=== PATIENT | female | born 1945 | race Caucasian/White ===

== ENCOUNTER 2018-12-08 11:49 | Emergency (ER) | payer MEDICARE, OTHER ==
[2018-12-08 12:05] VITALS: O2SAT 98
--- NOTE | 2018-12-08 12:05 | ED.PDOC ---
History of Present Illness - General Chief Complaint: Abdominal Pain Stated Complaint: abdominal pain Time Seen by Provider: 12/08/18 12:04 Information Source: patient Exam Limitations: no limitations - History of Present Illness Initial Comments: Therese Alvarez 73 y/o female brought by EMS with onset of non radiating intermittent upper abdominal pain after eating cereal this am felt nauseated,no diarrhea.no constipation,had bowel movement 2 days ago.Also denies hematuria ,dysuria. Abdominal Pain Onset Location: other Pain Radiation: no radiation Timing/Duration: 4-6 hours Improving Factors: nothing Worsening Factors: nothing Associated Symptoms: other - see hpi Review of Systems - Review of Systems Constitutional: States: no symptoms reported EENTM: States: no symptoms reported Respiratory: States: no symptoms reported Cardiology: States: no symptoms reported Gastrointestinal/Abdominal: States: see HPI Musculoskeletal: States: no symptoms reported All other Systems: Reviewed and Negative, No Change from Baseline Past Medical History (General) - Patient Medical History Hx Seizures: No Hx Stroke: No Hx Dementia: No Hx Asthma: No Hx of COPD: No Hx Cardiac Disorders: No Hx Congestive Heart Failure: No Hx Pacemaker: No Hx Hypertension: Yes Hx Thyroid Disease: Yes - thyroidectomy Hx Diabetes: No Hx Gastroesophageal Reflux: No Hx Renal Disease: No Hx Cancer: No Hx of HIV: No Hx Hepatitis C: No Hx MRSA: No Surgical History: other - c-sections;wrist right,thyroidectomy - Vaccination History Hx Tetanus, Diphtheria Vaccination: No Hx Influenza Vaccination: No Hx Pneumococcal Vaccination: No - Social History Hx Tobacco Use: No Hx Chewing Tobacco Use: No Hx Alcohol Use: No Hx Substance Use: No Hx Substance Use Treatment: No Hx Depression: No Hx Physical Abuse: No Hx Emotional Abuse: No Hx Suspected Abuse: No - Activities of Daily Living Patient Lives Alone: Yes - has caregiver in am;uses wheelchair - Female History Patient : No Family Medical History - Family History Mother Family History: Unknown Hx Family Stroke: Yes - DAD Hx Family;Other: ALZHEIMERS DISEASE-mom Physical Exam - Physical Exam General Appearance: Comfortable, Frail, No apparent distress Eyes, Ears, Nose, Throat Exam: normal ENT inspection Neck: non-tender, supple, normal inspection Respiratory: chest non-tender, lungs clear, normal breath sounds Cardiovascular/Chest: normal peripheral pulses, regular rate, rhythm, no murmur Peripheral Pulses: No deficit Gastrointestinal/Abdominal: normal bowel sounds, soft, tenderness - upper abdomen;no peritoneal signs Back Exam: no CVA tenderness, no vertebral tenderness Neurologic: alert, oriented x 3 Skin Exam: normal color, warm/dry Progress - Progress Progress: 12/08/18 13:06 Vital Signs - 8 hr 12/08/18 11:49 Temperature 99.0 F Pulse Rate [ 90 Left Radial] Respiratory 18 Rate Blood Pressure 140/88 [Left Arm] O2 Sat by Pulse 98 Oximetry 12/08/18 15:54 Family wants refill of Tylenol 3 and alprazolam -patient has appointment with primary Md next week - Results/Orders Results/Orders: 12/08/18 14:45 Urine Culture Stat Laboratory Results - last 24 hr 12/08/18 12/08/18 12:55 14:45 WBC 14.4 H RBC 4.56 Hgb 12.9 Hct 39.3 MCV 86.1 MCH 28.3 MCHC 32.9 L RDW 15.0 H Plt Count 362 MPV 8.1 Absolute Neuts (auto) 11.70 H Absolute Lymphs (auto) 1.70 Absolute Monos (auto) 0.80 Absolute Eos (auto) 0.10 Absolute Basos (auto) 0.10 Neutrophils % 81.3 H Lymphocytes % 11.7 L Monocytes % 5.4 Eosinophils % 0.8 L Basophils % 0.8 PT 10.3 INR 1.03 PTT (SP) 24.1 Sodium 137 Potassium 3.6 Chloride 108 Carbon Dioxide 18 L Anion Gap 14.6 BUN 16 Creatinine 0.71 BUN/Creatinine Ratio 22.5 H Random Glucose 115 H Serum Osmolality 275.9 Calcium 8.5 Magnesium 1.9 Total Bilirubin 0.7 Direct Bilirubin < 0.1 Indirect Bilirubin 0.6 AST 14 ALT 13 Alkaline Phosphatase 65 Creatine Kinase 20 L CK-MB (CK-2) 0.6 CK-MB (CK-2) % Not Reportable Troponin I < 0.02 Serum Total Protein 6.4 Albumin 3.7 Lipase 42 Urine Color Yellow Urine Appearance Sl cloudy Urine pH 5.5 Ur Specific [place] 1.015 Urine Protein Negative Urine Glucose (UA) Negative Urine Ketones Negative Urine Blood Negative Urine Nitrite Negative Urine Bilirubin Negative Urine Urobilinogen 0.2 Ur Leukocyte Esterase Small H Urine RBC 0 Urine WBC 5-10 H Ur Epithelial Cells 1-3 Urine Bacteria Rare - EKG/XRAY/CT XRAY: chest - no acute abnormalities CT Ordered: Yes - no acute abnormalties Departure - Departure Clinical Impression: Abdominal pain Qualifiers: Abdominal location: unspecified location Qualified Code(s): R10.9 - Unspecified abdominal pain Urinary tract infection Qualifiers: Urinary tract infection type: site unspecified Hematuria presence: without hematuria Qualified Code(s): N39.0 - Urinary tract infection, site not specified Constipation Qualifiers: Constipation type: slow transit constipation Qualified Code(s): K59.01 - Slow transit constipation Time of Disposition: 15:53 Disposition: Discharge to Home or Self Care Condition: Fair Departure Forms: ED Discharge - Pt. Copy, Patient Portal Self Enrollment Instructions: DI for Abdominal Pain-Adult, Urinary Tract Infections in Adults, Constipation in Adults, Constipation, Adult (DC), Urinary Tract Infection, Adult (DC) Referrals: DENZEL GAN [Primary Care Provider] - 1-2 Weeks Prescriptions: Acetamin W/Cod #3 Tab [Tylenol w/CODEINE #3] 1 ea PO TID PRN #20 tab PRN Reason: Pain Alprazolam [Xanax] 1 mg PO BEDTIME #10 tab Nitrofurantoin Monohydrate Mac [Macrobid] 100 mg PO BID 7 Days #10 capsule Home Medications: Ambulatory Orders Atorvastatin Calcium [Lipitor] 20 mg PO BEDTIME 07/13/14 Calcitonin-[place] Nasal [place] [Miacalcin Nasal [place]] 200 unit NA DAILY 07/13/14 Hydrochlorothiazide [Microzide] 12.5 mg PO DAILY 07/13/14 Levothyroxine Sodium [Tirosint] 100 mcg PO DAILY 07/13/14 Lisinopril 10 mg PO DAILY 07/13/14 Metoprolol Succinate [Metoprolol Succinate ER] 100 mg PO BEDTIME 07/13/14 Sertraline HCl 75 mg PO DAILY 07/13/14 Acetaminophen W/ Codeine [Tylenol W/ CODEINE #3] 1 ea PO Q4H PRN #12 04/09/16 Ibuprofen [Motrin Tab] 600 mg PO Q8H PRN #15 tab 04/09/16 Acetamin W/Cod #3 Tab [Tylenol w/CODEINE #3] 1 ea PO TID PRN #20 tab 12/08/18 Alprazolam [Xanax] 1 mg PO BEDTIME #10 tab 12/08/18 Nitrofurantoin Monohydrate Mac [Macrobid] 100 mg PO BID 7 Days #10 capsule 12/08/18 Additional Instructions: Return to ER as needed;Keep appointment with primary Md next week
[2018-12-08] MEDS ORDERED: MORPHINE SULFATE INJ 10 MG/ML VIAL IV ONE (12:06)
[2018-12-08] MEDS ORDERED: SODIUM CHLORIDE 0.9% 500ML 500 ML IVS ONE (12:06)
[2018-12-08] MEDS ORDERED: PROCHLORPERAZINE INJ 10 MG/2 ML VIAL IV ONE (12:06)
--- NOTE | 2018-12-08 12:47 | RAD ---
PROCEDURE: XR Chest, 1 View CLINICAL INDICATION: The patient is 73 years old and is Female; pain TECHNIQUE: Frontal view of the chest. COMPARISON: Prior study from 04/19/2010 FINDINGS: LIMITATIONS: The patient's chin overlies the lung apices causing partial obscuration. The patient is rotated, which can compromise assessment. LUNGS: The lungs are clear and free of focal consolidation. Pulmonary vascularity is normal. PLEURAL SPACE: There is NO pneumothorax. There are no pleural effusions noted. HEART: The heart size is normal. MEDIASTINUM: The mediastinal contour is unremarkable. BONES/JOINTS: There has been prior ORIF of the LEFT clavicle. No acute abnormality. VASCULATURE: The aorta is uncoiled. IMPRESSION: The lungs are clear and free of focal consolidation. Electronically signed by: Claudio Barroso MD 12/08/2018 12:44 PM CDT
[2018-12-08] MEDS ORDERED: diphenhydrAMINE HCL 50 MG/ML VIAL ONE (13:03)
[2018-12-08] MEDS ORDERED: diphenhydrAMINE HCL 50 MG/ML VIAL IV ONE (13:12)
--- NOTE | 2018-12-08 14:08 | CT ---
EXAM DESCRIPTION: Abdoment/Pelvis w/o Contrast CLINICAL HISTORY: pain COMPARISON: None Available TECHNIQUE: CT of the abdomen and Pelvis was performed without IV contrast. This exam was performed according to our departmental dose-optimization program, which includes automated exposure control, adjustment of the mA and/or kV according to patient size and/or use of iterative reconstruction technique. FINDINGS: The dome of the liver is excluded from this exam. With this in mind, no lung base abnormality is seen. There is no pneumoperitoneum, adenopathy or ascites. Mural calcifications in the abdominal aorta without aneurysm. No calcified gallstone. Visualized portions of the liver are unremarkable. The spleen, pancreas, adrenals and kidneys are unremarkable. No small bowel or mesenteric abnormality. The uterus and ovaries are unremarkable for patient's age. There is a tiny amount of gas in the bladder, probably related to recent instrumentation. Moderate amount of stool and gas scattered throughout the colon. Occasional colonic diverticulosis, but no diverticulitis, colonic wall thickening or pericolonic inflammation. No appendicitis. Degenerative changes in lumbar spine at several levels. IMPRESSION: Moderate amount of colonic stool and gas and colonic diverticulosis, but no diverticulitis or other acute abnormality in the abdomen or pelvis to explain patient's symptoms. Tiny amount of gas in the bladder likely related to recent instrumentation, less likely cystitis or fistula. Electronically signed by: Forrest Cooper MD 12/08/2018 2:04 PM CDT
[2018-12-08] MEDS ORDERED: NITROFURANTOIN MONOHYDRATE MAC 100 MG CAP PO ONE (15:55)
[2018-12-08 16:37] VITALS: BP 131/72; TEMP 98.5
== END 2018-12-08 16:18 | disposition home or self-care (01) ==
LOC: ER 11:52
DX: N39.0 Urinary tract infection, site not specified (principal); K59.01 Slow transit constipation; R10.10 Upper abdominal pain, unspecified; I10 Essential (primary) hypertension; E89.0 Postprocedural hypothyroidism

== ENCOUNTER → 2018-12-13 | Outpatient (CLI) | payer OTHER | LOC: GMAM 14:01 | PROVIDERS: ATTEND Family Medicine | DX: R10.84 Generalized abdominal pain (principal); I10 Essential (primary) hypertension; R53.82 Chronic fatigue, unspecified; N39.0 Urinary tract infection, site not specified; E55.9 Vitamin D deficiency, unspecified ==

== ENCOUNTER → 2019-07-10 | Outpatient (CLI) | payer OTHER | LOC: GOCC 11:47 | PROVIDERS: ATTEND General Practice | DX: R19.7 Diarrhea, unspecified (principal) ==

== ENCOUNTER 2019-08-05 17:17 | Emergency (ER) | payer OTHER ==
[2019-08-05] MEDS ORDERED: SODIUM CHLORIDE 0.9% (FLUSH) 10 ML SYG IV PRN (17:41)
--- NOTE | 2019-08-05 17:43 | CT ---
EXAM DESCRIPTION: Head CLINICAL HISTORY: possible stroke COMPARISON: None Available TECHNIQUE: Contiguous axial CT images of the head were obtained. Coronal and sagittal reconstructions were created from the axial data. This exam was performed according to our departmental dose-optimization program, which includes automated exposure control, adjustment of the mA and/or kV according to patient size and/or use of iterative reconstruction technique. FINDINGS: Scattered foci of increased attenuation in the periatrial white matter do not exert significant mass effect on surrounding structures and may be sequela of prior insult, most likely on the basis of small vessel disease. There is no other evidence of acute mass, mass effect, midline shift or hemorrhage. The ventricles and extra-axial CSF spaces are unremarkable. The brain parenchyma appears otherwise normal for the patient's age. No acute abnormalities of the bones is seen. IMPRESSION: No definite acute intracranial abnormality. MRI is much more sensitive and specific for acute ischemia than CT and if there is persistent concern for acute ischemia, I recommend MRI. Electronically signed by: Sanket Petersen 08/05/2019 5:41 PM [facility]
--- NOTE | 2019-08-05 18:12 | RAD ---
EXAM DESCRIPTION: Chest x-ray,1 View CLINICAL HISTORY: expressive aphasia COMPARISON: December 08, 2018 FINDINGS: Cardiac silhouette is within normal limits. Patient is rotated. Apices are obscured by superimposed soft tissues/patient mandible. There is evidence of prior left clavicular surgery. Decreased bone mineralization compatible with osteopenia. There is no focal parenchymal or pleural disease. Linear opacities within the bases may represent scar versus subsegmental atelectasis. Elevation of the right hemidiaphragm is unchanged. IMPRESSION: Linear opacities within the bases may represent scar versus subsegmental atelectasis. Electronically signed by: Meng Erazo MD 08/05/2019 6:10 PM [facility]
--- NOTE | 2019-08-05 18:24 | ED.PDOC ---
History of Present Illness - General Chief Complaint: Neuro Symptoms/Deficits Stated Complaint: just doesn't feel right, diff getting words out Time Seen by Provider: 08/05/19 17:40 Source: patient, RN notes reviewed, Vital Signs reviewed, EMS notes reviewed Exam Limitations: clinical condition - History of Present Illness Initial Comments: patient is 74-year-old white female who presents from the retirement via EMS.per the retirement patient had expressive aphasia starting they think at 9 AM this morning. In the history were able to obtain from the patient she thinks this is been ongoing for weeks. Unable to obtain a good HPI or review of systems secondary to patient's partial expressive aphasia, slurred speech and confusion. Timing/Duration: unsure Severity: moderate Improving Factors: nothing Worsening Factors: nothing Associated Symptoms: denies symptoms Allergies/Adverse Reactions: Allergies Morphine Allergy (Verified 08/05/19 17:26) Rash Home Medications: Ambulatory Orders Atorvastatin Calcium [Lipitor] 20 mg PO BEDTIME 07/13/14 Calcitonin-[place] Nasal [place] [Miacalcin Nasal [place]] 200 unit NA DAILY 07/13/14 Hydrochlorothiazide [Microzide] 12.5 mg PO DAILY 07/13/14 Levothyroxine Sodium [Tirosint] 100 mcg PO DAILY 07/13/14 Lisinopril 10 mg PO DAILY 07/13/14 Metoprolol Succinate [Metoprolol Succinate ER] 100 mg PO BEDTIME 07/13/14 Sertraline HCl 75 mg PO DAILY 07/13/14 Acetaminophen W/ Codeine [Tylenol W/ CODEINE #3] 1 ea PO Q4H PRN #12 04/09/16 Ibuprofen [Motrin Tab] 600 mg PO Q8H PRN #15 tab 04/09/16 Acetamin W/Cod #3 Tab [Tylenol w/CODEINE #3] 1 ea PO TID PRN #20 tab 12/08/18 Alprazolam [Xanax] 1 mg PO BEDTIME #10 tab 12/08/18 Nitrofurantoin Monohydrate Mac [Macrobid] 100 mg PO BID 7 Days #10 capsule 12/08/18 Cefdinir 250 mg PO BID #70 ml 08/05/19 Review of Systems - Review of Systems Constitutional: States: no symptoms reported, see HPI EENTM: States: other - hoarse voice-months Respiratory: States: no symptoms reported Cardiology: States: no symptoms reported Neurological: States: see HPI, other - expressive aphasia Unable to Obtain Due To: clinical condition, other - partial expressive aphasia with confusion Past Medical History (General) - Patient Medical History Hx Seizures: No Hx Stroke: No Hx Dementia: No Hx Asthma: No Hx of COPD: No Hx Cardiac Disorders: No Hx Congestive Heart Failure: No Hx Pacemaker: No Hx Hypertension: Yes Hx Thyroid Disease: Yes - thyroidectomy Hx Diabetes: No Hx Gastroesophageal Reflux: No Hx Renal Disease: No Hx Cancer: No Hx of HIV: No Hx Hepatitis C: No Hx MRSA: No - Vaccination History Hx Tetanus, Diphtheria Vaccination: No - UNKNKOWN Hx Influenza Vaccination: No - UNKNOWN Hx Pneumococcal Vaccination: No - Social History Hx Tobacco Use: No Hx Chewing Tobacco Use: No Hx Alcohol Use: No Hx Substance Use: No Hx Substance Use Treatment: No Hx Depression: No Hx Physical Abuse: No Hx Emotional Abuse: No Hx Suspected Abuse: No - Activities of Daily Living Retirement/Assisted Living (if applicable):: [facility] - Female History Patient is a Female of Child Bearing Age (10 -59 yrs old): No Patient : No Family Medical History - Family History Mother Family History: Unknown Hx Family Stroke: Yes - DAD Hx Family;Other: ALZHEIMERS DISEASE-mom Physical Exam - Physical Exam General Appearance: Alert, Anxious, Emaciated, Frail Eye Exam: bilateral normal Ears, Nose, Throat: hearing grossly normal, normal ENT inspection Neck: non-tender, full range of motion Respiratory: chest non-tender, no respiratory distress, no accessory muscle use, rhonchi Cardiovascular/Chest: regular rate, rhythm, no gallop, JVD Peripheral Pulses: radial,right: 2+, radial,left: 2+ Gastrointestinal/Abdominal: normal bowel sounds, non tender, soft Back Exam: normal inspection, no CVA tenderness, no vertebral tenderness Extremity: non-tender, no pedal edema, no calf tenderness Neurologic: alert, normal mood/affect, other - questionable left facial droop but per daughter it's been this way for months Skin Exam: normal color, warm/dry Lymphatic: no adenopathy Progress - Progress Progress: differential diagnosis: CVA, TIA, UTI, sepsis among others 08/05/19 20:21 After review of all medical records and discussion with her daughter and in consultation with her 2 siblings, we will begin treatment for the UTI and patient back to the retirement. It appears the symptoms have been ongoing for months and that this is nothing new. Patient is supposed to see an ENT doctor to evaluate her hoarse voice and decreased ability to speak. Additionally patient is supposed to be scheduled for an outpatient MRI. Bleed the patient has had an acute stroke and will not benefit from transfer to a higher level of care at this point in time. I have planned on IV Rocephin here as well as a prescription to start in the morning for discussed the plan of care with the family and patient and they voice understanding and agreement. Leland Davidson M.D. #[id number] - Results/Orders Results/Orders: 08/05/19 17:41 IV Care:Saline Lock per Protoc QSHIFT Telemetry .ONCE Sodium Chloride 0.9% (Flush) [Saline Flush Syringe] 10 ml IV PRN PRN 08/05/19 17:45 EKG STAT 08/05/19 18:31 Urine Culture Stat 08/05/19 20:04 cefTRIAXone SODIUM [Rocephin] 1 gm Sodium Chl 0.9% 50Ml Min-Bag+ [NS 50ml MINI-BAG+] 50 ml IVPB ONCE BLOOD CULTURE Stat Laboratory Results - last 24 hr 08/05/19 08/05/19 08/05/19 17:57 18:11 18:11 WBC 9.1 RBC 4.76 Hgb 13.7 Hct 41.9 MCV 88.1 MCH 28.8 MCHC 32.7 L RDW 14.3 Plt Count 344 MPV 7.5 Absolute Neuts (auto) 6.20 Absolute Lymphs (auto) 2.10 Absolute Monos (auto) 0.70 Absolute Eos (auto) 0.10 Absolute Basos (auto) 0.10 Neutrophils % 68.0 Lymphocytes % 22.7 Monocytes % 7.7 Eosinophils % 0.9 L Basophils % 0.7 PT INR PTT (SP) Sodium 134 L Potassium 3.7 Chloride 97 L Carbon Dioxide 26 Anion Gap 14.7 BUN 12 Creatinine 0.64 BUN/Creatinine Ratio 18.8 POC Glucose 103 Random Glucose 107 H Serum Osmolality 268.5 L Calcium 9.6 Total Bilirubin 0.8 AST 17 ALT < 8 L Alkaline Phosphatase 58 Creatine Kinase 18 L CK-MB (CK-2) 0.7 CK-MB (CK-2) % Not Reportable Troponin I < 0.02 Serum Total Protein 7.1 Albumin 4.1 Globulin 3.0 Albumin/Globulin Ratio 1.4 Urine Color Urine Appearance Urine pH Ur Specific [place] Urine Protein Urine Glucose (UA) Urine Ketones Urine Blood Urine Nitrite Urine Bilirubin Urine Urobilinogen Ur Leukocyte Esterase Urine RBC Urine WBC Ur Epithelial Cells Urine Bacteria Hyaline Casts Urine Mucus 08/05/19 08/05/19 18:11 18:31 WBC RBC Hgb Hct MCV MCH MCHC RDW Plt Count MPV Absolute Neuts (auto) Absolute Lymphs (auto) Absolute Monos (auto) Absolute Eos (auto) Absolute Basos (auto) Neutrophils % Lymphocytes % Monocytes % Eosinophils % Basophils % PT 9.9 INR 0.99 PTT (SP) 23.9 Sodium Potassium Chloride Carbon Dioxide Anion Gap BUN Creatinine BUN/Creatinine Ratio POC Glucose Random Glucose Serum Osmolality Calcium Total Bilirubin AST ALT Alkaline Phosphatase Creatine Kinase CK-MB (CK-2) CK-MB (CK-2) % Troponin I Serum Total Protein Albumin Globulin Albumin/Globulin Ratio Urine Color Yellow Urine Appearance Cloudy Urine pH 5.5 Ur Specific [place] 1.015 Urine Protein Negative Urine Glucose (UA) Negative Urine Ketones Negative Urine Blood Negative Urine Nitrite Negative Urine Bilirubin Negative Urine Urobilinogen 0.2 Ur Leukocyte Esterase Small H Urine RBC 0-1 Urine WBC 30-40 H Ur Epithelial Cells 3-5 Urine Bacteria 3+ H Hyaline Casts 0-1 Urine Mucus Small EXAM DESCRIPTION: Chest x-ray,1 View CLINICAL HISTORY: expressive aphasia COMPARISON: December 08, 2018 FINDINGS: Cardiac silhouette is within normal limits. Patient is rotated. Apices are obscured by superimposed soft tissues/patient mandible. There is evidence of prior left clavicular surgery. Decreased bone mineralization compatible with osteopenia. There is no focal parenchymal or pleural disease. Linear opacities within the bases may represent scar versus subsegmental atelectasis. Elevation of the right hemidiaphragm is unchanged. IMPRESSION: Linear opacities within the bases may represent scar versus subsegmental atelectasis. Electronically signed by: Meng Erazo MD 08/05/2019 6:10 PM EXAM DESCRIPTION: Head CLINICAL HISTORY: possible stroke COMPARISON: None Available TECHNIQUE: Contiguous axial CT images of the head were obtained. Coronal and sagittal reconstructions were created from the axial data. This exam was performed according to our departmental dose-optimization program, which includes automated exposure control, adjustment of the mA and/or kV according to patient size and/or use of iterative reconstruction technique. FINDINGS: Scattered foci of increased attenuation in the periatrial white matter do not exert significant mass effect on surrounding structures and may be sequela of prior insult, most likely on the basis of small vessel disease. There is no other evidence of acute mass, mass effect, midline shift or hemorrhage. The ventricles and extra-axial CSF spaces are unremarkable. The brain parenchyma appears otherwise normal for the patient's age. No acute abnormalities of the bones is seen. IMPRESSION: No definite acute intracranial abnormality. MRI is much more sensitive and specific for acute ischemia than CT and if there is persistent concern for acute ischemia, I recommend MRI. Electronically signed by: Denzel Petersen 08/05/2019 5:41 PM [employer] SCI[employer] EKG performed on 05 August 2019@1800 hrs.: Normal sinus rhythm at 69 bpm, normal axis deviation, no STT wave changes, normal EKG no comparison EKG available. - EKG/XRAY/CT CT Ordered: Yes Departure - Departure Clinical Impression: Confusion, Hoarse voice quality UTI (urinary tract infection) Qualifiers: Urinary tract infection type: acute cystitis Hematuria presence: without hematuria Qualified Code(s): N30.00 - Acute cystitis without hematuria Time of Disposition: 20:29 Disposition: Discharge to Home or Self Care Condition: Good Departure Forms: ED Discharge - Pt. Copy, Patient Portal Self Enrollment Instructions: Urinary Tract Infection, Adult (DC), Delirium (Confusion) (DC) Referrals: DENZEL GAN [Family Provider] - 1-5 Days Prescriptions: Cefdinir 250 mg PO BID #70 ml Home Medications: Ambulatory Orders Atorvastatin Calcium [Lipitor] 20 mg PO BEDTIME 07/13/14 Calcitonin-[place] Nasal [place] [Miacalcin Nasal [place]] 200 unit NA DAILY 07/13/14 Hydrochlorothiazide [Microzide] 12.5 mg PO DAILY 07/13/14 Levothyroxine Sodium [Tirosint] 100 mcg PO DAILY 07/13/14 Lisinopril 10 mg PO DAILY 07/13/14 Metoprolol Succinate [Metoprolol Succinate ER] 100 mg PO BEDTIME 07/13/14 Sertraline HCl 75 mg PO DAILY 07/13/14 Acetaminophen W/ Codeine [Tylenol W/ CODEINE #3] 1 ea PO Q4H PRN #12 04/09/16 Ibuprofen [Motrin Tab] 600 mg PO Q8H PRN #15 tab 04/09/16 Acetamin W/Cod #3 Tab [Tylenol w/CODEINE #3] 1 ea PO TID PRN #20 tab 12/08/18 Alprazolam [Xanax] 1 mg PO BEDTIME #10 tab 12/08/18 Nitrofurantoin Monohydrate Mac [Macrobid] 100 mg PO BID 7 Days #10 capsule Cefdinir 250 mg PO BID #70 ml 08/05/19
[2019-08-05] MEDS ORDERED: cefTRIAXone SODIUM 1 GM in SODIUM CHL 0.9% 50ML MIN-BAG+ 50 ML IVPB ONE (20:04)
[2019-08-05] MEDS ORDERED: SODIUM CHL 0.9% 50ML MIN-BAG+ 50 ML IVPB ONE (20:09)
[2019-08-05] MEDS ORDERED: cefTRIAXone SODIUM 1 GM VIAL ONE (20:09)
[2019-08-05 20:59] VITALS: BP 94/66; TEMP 98.3; O2SAT 96
== END 2019-08-05 21:20 | disposition home or self-care (01) ==
LOC: ER 17:17
DX: N30.00 Acute cystitis without hematuria (principal); R49.0 Dysphonia; R41.0 Disorientation, unspecified; R47.01 Aphasia; I10 Essential (primary) hypertension; E89.0 Postprocedural hypothyroidism; Z79.899 Other long term (current) drug therapy; Z88.5 Allergy status to narcotic agent
CPT/HCPCS: 36415; 36416; 70450; 71045; 80053; 81001; 82550; 82553; 82948; 84484; 85025; 85610; 85730; 87040; 87086; 93005; J0696; J7050

== ENCOUNTER 2019-10-17 19:03 | Emergency (ER) | payer OTHER ==
[2019-10-17] MEDS ORDERED: SODIUM CHLORIDE 0.9% (FLUSH) 10 ML SYG IV PRN (19:32)
[2019-10-17] MEDS ORDERED: ACETAMINOPHEN 500 MG TAB PO ONE (19:32)
[2019-10-17] MEDS ORDERED: SODIUM CHLORIDE 0.9% 1000ML 1,500 ML IVS ONE (19:32)
[2019-10-17] MEDS ORDERED: CEFEPIME 2 GM in SODIUM CHL 0.9% 50ML MIN-BAG+ 50 ML IVPB ONE (19:34)
[2019-10-17] MEDS ORDERED: IPRATROPIUM/ALBUTEROL 3 ML VIAL NEB ONE (19:35)
--- NOTE | 2019-10-17 19:36 | ED.PDOC ---
History of Present Illness - General Chief Complaint: Respiratory Problem Stated Complaint: shortness of breath and coughing Time Seen by Provider: 10/17/19 19:32 Source: patient Exam Limitations: no limitations - History of Present Illness Comments: 74 yo F who presents for cough onset one week ago, worsening since, productive in nature. Unsure if having fever. Associated congestion, runny nose. Pt is concerned she has pneumonia. Pt denies hx of COPD, is not currently on antibx. Pt is from [place]. Denies chills, sore throat, CP, SOB, abd pain, n/v/d, edema. Allergies/Adverse Reactions: Allergies Morphine Allergy (Verified 08/05/19 17:26) Rash Home Medications: Ambulatory Orders Atorvastatin Calcium [Lipitor] 20 mg PO BEDTIME 07/13/14 Calcitonin-[place] Nasal [place] [Miacalcin Nasal [place]] 200 unit NA DAILY 07/13/14 Hydrochlorothiazide [Microzide] 12.5 mg PO DAILY 07/13/14 Levothyroxine Sodium [Tirosint] 100 mcg PO DAILY 07/13/14 Lisinopril 10 mg PO DAILY 07/13/14 Metoprolol Succinate [Metoprolol Succinate ER] 100 mg PO BEDTIME 07/13/14 Sertraline HCl 75 mg PO DAILY 07/13/14 Acetaminophen W/ Codeine [Tylenol W/ CODEINE #3] 1 ea PO Q4H PRN #12 04/09/16 Ibuprofen [Motrin Tab] 600 mg PO Q8H PRN #15 tab 04/09/16 Acetamin W/Cod #3 Tab [Tylenol w/CODEINE #3] 1 ea PO TID PRN #20 tab 12/08/18 Alprazolam [Xanax] 1 mg PO BEDTIME #10 tab 12/08/18 Nitrofurantoin Monohydrate Mac [Macrobid] 100 mg PO BID 7 Days #10 capsule 12/08/18 Cefdinir 250 mg PO BID #70 ml 08/05/19 Albuterol Sulfate Nebs [Proventil Nebs] 2.5 mg INH Q4H #18 vial 10/17/19 Levofloxacin [Levaquin] 750 mg PO DAILY #10 tablet 10/17/19 Review of Systems - Review of Systems Constitutional: States: chills, other - unsure if febrile. Denies: fever - unknown EENTM: States: nose congestion, other - runny nose. Denies: double vision, ear pain, ear discharge, throat pain, throat swelling Respiratory: States: cough. Denies: orthopnea, short of breath, stridor Cardiology: Denies: chest pain, palpitations, syncope Gastrointestinal/Abdominal: Denies: abdominal pain, constipation, diarrhea, nausea, vomiting Genitourinary: Denies: dysuria, frequency, hematuria Musculoskeletal: Denies: back pain, neck pain Skin: Denies: lesions, rash Neurological: Denies: headache, numbness, weakness Endocrine: Denies: increased thirst, increased urine Past Medical History (General) - Patient Medical History Hx Seizures: No Hx Stroke: No Hx Dementia: No Hx Asthma: No Hx of COPD: No Hx Cardiac Disorders: No Hx Congestive Heart Failure: No Hx Pacemaker: No Hx Hypertension: Yes Hx Thyroid Disease: Yes - thyroidectomy Hx Diabetes: No Hx Gastroesophageal Reflux: No Hx Renal Disease: No Hx Cancer: No Hx of HIV: No Hx Hepatitis C: No Hx MRSA: No - Vaccination History Hx Tetanus, Diphtheria Vaccination: No - UNKNKOWN Hx Influenza Vaccination: No - UNKNOWN Hx Pneumococcal Vaccination: No - Social History Hx Tobacco Use: No Hx Chewing Tobacco Use: No Hx Alcohol Use: No Hx Substance Use: No Hx Substance Use Treatment: No Hx Depression: No Hx Physical Abuse: No Hx Emotional Abuse: No Hx Suspected Abuse: No - Female History Patient : No Family Medical History - Family History Mother Family History: Unknown Hx Family Stroke: Yes - DAD Hx Family;Other: ALZHEIMERS DISEASE-mom Physical Exam - Physical Exam General Appearance: Alert, Comfortable, No apparent distress, Other - Elderly Eye Exam: bilateral normal ENT Exam: normal ENT inspection, other - no tonsillar erythema, exudate Neck: non-tender, full range of motion, supple, normal inspection, trachea midline Respiratory: chest non-tender, no respiratory distress, no accessory muscle use, decreased breath sounds - Left lower base, wheezing, other - mild tachypnea Cardiovascular/Chest: normal peripheral pulses, regular rate, rhythm, no edema, no gallop, no JVD, no murmur Gastrointestinal/Abdominal: non tender, soft, no organomegaly, no pulsatile mass, other - No distention, guarding, rebound Extremity: normal range of motion, non-tender, normal inspection, no pedal edema, no calf tenderness, normal capillary refill Neurologic: no motor/sensory deficits, alert, normal mood/affect, oriented x 3 Skin Exam: normal color, warm/dry Lymphatic: no adenopathy Progress - Progress Progress: I have explained and reviewed all results with the pt and daughter. Pt is well appearing, NAD, mild tachypnea though saturating at 92% on RA, no longer wheezing. I offered admission, daughter (retired RN) states that she feels comfortable with d/c back to the NH as the pt is monitored well there, they have the ability to place pt on oxygen if needed, and she will be checking in on pt all weekend. Confirms pt has not been on any antibx but has been on Mucinex this week. I discussed with admitting provider Saurabh Randolph, he states pt does not meet inpt criteria and recommends d/c home, states her NH also has RT available for breathing treatments as needed. I explained that emergent conditions may arise and to return to the ER for new, worsening, or any persistent conditions. I've explained the importance of f/u for recheck. All questions and concerns addressed at this time. Pt and daughter understands and agrees with plan. Pt well appearing, NAD, is stable for discharge. Brooke Matamoros MD Emergency Medicine Physician Billing Number [id number] - Results/Orders Results/Orders: 10/17/19 19:15 STREP A SCREEN CULTURE Stat 10/17/19 19:26 URINALYSIS Stat 10/17/19 19:32 IV Care:Saline Lock per Protoc QSHIFT Telemetry .ONCE Sodium Chloride 0.9% (Flush) [Saline Flush Syringe] 10 ml IV PRN PRN EKG Stat Pulse Ox Stat 10/17/19 20:02 BLOOD CULTURE Stat Laboratory Results - last 24 hr 10/17/19 10/17/19 10/17/19 19:15 20:02 20:02 WBC 11.2 H RBC 4.34 Hgb 12.8 Hct 38.9 MCV 89.6 MCH 29.5 MCHC 33.0 RDW 13.8 Plt Count 306 MPV 7.5 Absolute Neuts (auto) 8.50 H Absolute Lymphs (auto) 1.70 Absolute Monos (auto) 0.90 H Absolute Eos (auto) 0.00 Absolute Basos (auto) 0.00 Neutrophils % 76.2 Lymphocytes % 15.3 L Monocytes % 7.8 Eosinophils % 0.4 L Basophils % 0.3 Sodium 132 L Potassium 4.0 Chloride 99 L Carbon Dioxide 23 Anion Gap 14.0 BUN 11 Creatinine 0.50 L BUN/Creatinine Ratio 22.0 H Random Glucose 136 H Serum Osmolality 266.0 L Lactic Acid Calcium 9.1 Total Bilirubin 0.8 AST 17 ALT 10 Alkaline Phosphatase 53 Serum Total Protein 6.5 Albumin 3.5 Globulin 3.0 Albumin/Globulin Ratio 1.2 Group A Strep Rapid Negative 10/17/19 20:02 WBC RBC Hgb Hct MCV MCH MCHC RDW Plt Count MPV Absolute Neuts (auto) Absolute Lymphs (auto) Absolute Monos (auto) Absolute Eos (auto) Absolute Basos (auto) Neutrophils % Lymphocytes % Monocytes % Eosinophils % Basophils % Sodium Potassium Chloride Carbon Dioxide Anion Gap BUN Creatinine BUN/Creatinine Ratio Random Glucose Serum Osmolality Lactic Acid 1.7 Calcium Total Bilirubin AST ALT Alkaline Phosphatase Serum Total Protein Albumin Globulin Albumin/Globulin Ratio Group A Strep Rapid Microbiology 10/17/19 19:15 Influenza Types A & B (PCR) - Final Nose negative CXR: EXAM DESCRIPTION: Chest,1 View CLINICAL HISTORY: Shortness of breath, cough COMPARISON: Chest radiograph dated August 05, 2019 TECHNIQUE: One view radiograph of the chest FINDINGS: Tortuosity of the thoracic aorta. Cardiac silhouette shows upper limits of normal heart size. Pulmonary vascularity is within normal limits. Increased opacity medial aspect of the right lower lung zone. Left lung shows no confluent infiltrates. Right hemidiaphragm is mildly elevated compared to the left. Bilateral costophrenic angles are sharp. No pneumothorax. Redemonstrated is a fixating plate and screws of the distal left clavicle. Diffuse osteopenia. IMPRESSION: 1. Increased opacity medial aspect of the right lower lung zone, most compatible with infiltrate versus atelectasis. 2. Redemonstrated elevation of the right hemidiaphragm compared to left, not significantly changed. 3. Other findings as above. Electronically signed by: Carlos Rich MD 10/17/2019 8:19 PM COMPLIANCE TESTER Vital Signs - 24 hr 10/17/19 10/17/19 10/17/19 19:26 19:42 20:45 Temperature 99.4 F 99 F Pulse Rate 91 H 91 H Pulse Rate [ 89 81 left] Respiratory 24 24 24 Rate Blood Pressure 131/82 142/93 [Left Arm] O2 Sat by Pulse 96 93 L 91 L Oximetry 10/17/19 10/17/19 21:26 22:42 Temperature 97.9 F Pulse Rate 91 H Pulse Rate [ 86 88 left] Respiratory 24 24 Rate Blood Pressure 125/75 125/75 [Left Arm] O2 Sat by Pulse 93 L 93 L Oximetry - EKG/XRAY/CT EKG: no ST T wave changes Comments: NSR, rate 87, normal axis and intervals Departure - Departure Clinical Impression: Pneumonia Qualifiers: Pneumonia type: due to unspecified organism Laterality: right Lung location: lower lobe of lung Qualified Code(s): J18.9 - Pneumonia, unspecified organism Time of Disposition: 20:50 Disposition: Discharge to Home or Self Care Health Concerns: condition: stable Departure Forms: ED Discharge - Pt. Copy, Patient Portal Self Enrollment Instructions: Pneumonia, Adult (DC) Referrals: ABEBE HARP [Primary Care Provider] - 1-5 Days Prescriptions: Albuterol Sulfate Nebs [Proventil Nebs] 2.5 mg INH Q4H #18 vial Levofloxacin [Levaquin] 750 mg PO DAILY #10 tablet Home Medications: Ambulatory Orders Atorvastatin Calcium [Lipitor] 20 mg PO BEDTIME 07/13/14 Calcitonin-[place] Nasal [place] [Miacalcin Nasal [place]] 200 unit NA DAILY 07/13/14 Hydrochlorothiazide [Microzide] 12.5 mg PO DAILY 07/13/14 Levothyroxine Sodium [Tirosint] 100 mcg PO DAILY 07/13/14 Lisinopril 10 mg PO DAILY 07/13/14 Metoprolol Succinate [Metoprolol Succinate ER] 100 mg PO BEDTIME 07/13/14 Sertraline HCl 75 mg PO DAILY 07/13/14 Acetaminophen W/ Codeine [Tylenol W/ CODEINE #3] 1 ea PO Q4H PRN #12 04/09/16 Ibuprofen [Motrin Tab] 600 mg PO Q8H PRN #15 tab 04/09/16 Acetamin W/Cod #3 Tab [Tylenol w/CODEINE #3] 1 ea PO TID PRN #20 tab 12/08/18 Alprazolam [Xanax] 1 mg PO BEDTIME #10 tab 12/08/18 Nitrofurantoin Monohydrate Mac [Macrobid] 100 mg PO BID 7 Days #10 capsule 04/14/19 Cefdinir 250 mg PO BID #70 ml 08/05/19 Albuterol Sulfate Nebs [Proventil Nebs] 2.5 mg INH Q4H #18 vial 10/17/19 Levofloxacin [Levaquin] 750 mg PO DAILY #10 tablet 10/17/19 Additional Instructions: Follow up: [facility] As needed, if symptoms worsen
--- NOTE | 2019-10-17 20:20 | RAD ---
EXAM DESCRIPTION: Chest,1 View CLINICAL HISTORY: Shortness of breath, cough COMPARISON: Chest radiograph dated August 05, 2019 TECHNIQUE: One view radiograph of the chest FINDINGS: Tortuosity of the thoracic aorta. Cardiac silhouette shows upper limits of normal heart size. Pulmonary vascularity is within normal limits. Increased opacity medial aspect of the right lower lung zone. Left lung shows no confluent infiltrates. Right hemidiaphragm is mildly elevated compared to the left. Bilateral costophrenic angles are sharp. No pneumothorax. Redemonstrated is a fixating plate and screws of the distal left clavicle. Diffuse osteopenia. IMPRESSION: 1. Increased opacity medial aspect of the right lower lung zone, most compatible with infiltrate versus atelectasis. 2. Redemonstrated elevation of the right hemidiaphragm compared to left, not significantly changed. 3. Other findings as above. Electronically signed by: Carlos Rich MD 10/17/2019 8:19 PM OFFICE MACHINE SERVICER
[2019-10-17] MEDS ORDERED: SODIUM CHL 0.9% 50ML MIN-BAG+ 50 ML IVPB ONE (20:29)
[2019-10-17] MEDS ORDERED: CEFEPIME 2 GM VIAL ONE (20:29)
[2019-10-17 21:27] VITALS: BP 125/75; O2SAT 93
[2019-10-17] MEDS ORDERED: KETOROLAC TROMETHAMINE INJ 30 MG/ML VIAL IM ONE (22:12)
[2019-10-17] MEDS ORDERED: KETOROLAC TROMETHAMINE INJ 30 MG/ML VIAL ONE (22:13)
[2019-10-17 22:47] VITALS: TEMP 97.9
== END 2019-10-17 22:47 | disposition home or self-care (01) ==
LOC: ER 19:03
DX: J18.9 Pneumonia, unspecified organism (principal); I10 Essential (primary) hypertension; E89.0 Postprocedural hypothyroidism; Z79.899 Other long term (current) drug therapy; Z88.5 Allergy status to narcotic agent
CPT/HCPCS: 36415; 71045; 80053; 83605; 85025; 87040; 87070; 87502; 87880; 93005; 94640; J0692; J1885; J7030; J7050; J7620

== ENCOUNTER 2019-12-30 06:03 | Emergency (ER) | payer OTHER ==
[2019-12-30] MEDS ORDERED: SODIUM CHLORIDE 0.9% 1000ML 1,000 ML IVS ONE ×2 (06:11→07:30)
[2019-12-30] MEDS ORDERED: INSULIN LISPRO 100 UNITS/ML PEN SUBCU ONE (06:18)
--- NOTE | 2019-12-30 06:18 | ED.PDOC ---
History of Present Illness - General Source: EMS notes reviewed, group home records Exam Limitations: clinical condition - History of Present Illness Initial Comments: The patient is a 74-year-old female presenting from the group home secondary to altered mental status, diaphoresis and mild hypotension. The patient was apparently not like this when she was put to bed last night. The patient is tachypneic. EMS found a blood sugar of around 320 on the patient. She has no known history in the records at least of diabetes. She does seem to have some abdominal discomfort as she grimaces with palpation. She will open her eyes to voice command. She has a splint on her right upper extremity from a previous inoperable fracture. For the most part she wants to lay on her right side curled up. She does seem to have at least one goal of her extremities since her arrival. Oropharynx is mildly dry. Clothes are soaked with diaphoresis. Extremities are extremely cold. Initial temperature obtained is 96 8. Pulse oximeter is not reading well secondary to cold extremities. The patient is really unable to give us any useful information. She does have advanced Parkinson's. Reports suggest that she may not of had her last dose of medications as they could not get them down her. No report of any nausea vomiting or diarrhea. No report of any fever. The patient does have a history of intermittent pneumonias. Timing/Duration: unsure Severity: severe Improving Factors: nothing Worsening Factors: nothing <Jeremie Zaragoza - Last Filed: 12/30/19 06:55> <Andry Martin - Last Filed: 12/31/19 01:34> - General Time Seen by Provider: 12/30/19 06:11 - History of Present Illness Allergies/Adverse Reactions: Allergies Morphine Allergy (Verified 08/05/19 17:26) Rash Home Medications: Ambulatory Orders Atorvastatin Calcium [Lipitor] 20 mg PO BEDTIME 07/13/14 Calcitonin-Railroad Nasal [place] [Miacalcin Nasal [place]] 200 unit NA DAILY 07/13/14 Hydrochlorothiazide [Microzide] 12.5 mg PO DAILY 07/13/14 Levothyroxine Sodium [Tirosint] 100 mcg PO DAILY 07/13/14 Lisinopril 10 mg PO DAILY 07/13/14 Metoprolol Succinate [Metoprolol Succinate ER] 100 mg PO BEDTIME 07/13/14 Sertraline HCl 75 mg PO DAILY 07/13/14 Acetaminophen W/ Codeine [Tylenol W/ CODEINE #3] 1 ea PO Q4H PRN #12 04/09/16 Ibuprofen [Motrin Tab] 600 mg PO Q8H PRN #15 tab 04/09/16 Acetamin W/Cod #3 Tab [Tylenol w/CODEINE #3] 1 ea PO TID PRN #20 tab 12/08/18 Alprazolam [Xanax] 1 mg PO BEDTIME #10 tab 12/08/18 Nitrofurantoin Monohydrate Mac [Macrobid] 100 mg PO BID 7 Days #10 capsule 12/08/18 Cefdinir 250 mg PO BID #70 ml 08/05/19 Albuterol Sulfate Nebs [Proventil Nebs] 2.5 mg INH Q4H #18 vial 10/17/19 Levofloxacin [Levaquin] 750 mg PO DAILY #10 tablet 10/17/19 Review of Systems - Review of Systems Review of Systems: 12/30/19 06:22 Unable to obtain secondary to patient's condition. Unable to Obtain Due To: condition, dementia, clinical condition <Jeremie Zaragoza - Last Filed: 12/30/19 06:55> Past Medical History (General) - Patient Medical History Hx Seizures: No Hx Stroke: No Hx Dementia: No Hx Asthma: No Hx of COPD: No Hx Cardiac Disorders: No Hx Congestive Heart Failure: No Hx Pacemaker: No Hx Hypertension: Yes Hx Thyroid Disease: Yes - thyroidectomy Hx Diabetes: No Hx Gastroesophageal Reflux: No Hx Renal Disease: No Hx Cancer: No Hx of HIV: No Hx Hepatitis C: No Hx MRSA: No - Vaccination History Hx Tetanus, Diphtheria Vaccination: No - UNKNKOWN Hx Influenza Vaccination: No - UNKNOWN Hx Pneumococcal Vaccination: No - Social History Hx Tobacco Use: No Hx Chewing Tobacco Use: No Hx Alcohol Use: No Hx Substance Use: No Hx Substance Use Treatment: No Hx Depression: No Hx Physical Abuse: No Hx Emotional Abuse: No Hx Suspected Abuse: No - Female History Patient : No <Jeremie Zaragoza - Last Filed: 12/30/19 06:55> Family Medical History - Family History Mother Family History: Unknown Hx Family Stroke: Yes - DAD Hx Family;Other: ALZHEIMERS DISEASE-mom <Jeremie Zaragoza - Last Filed: 12/30/19 06:55> Physical Exam - Physical Exam General Appearance: Alert - She is arousable to voice but much less so than normal., Frail, Ill Appearing Eye Exam: bilateral normal - The patient will look around with her eyes. Pupils are reactive. Ears, Nose, Throat: hearing grossly normal, other - The patient does hear me speaking to her. Mucous membranes are fairly dry. Neck: supple, other - The patient really wants to have her head primarily looking to the right. Not remember if this is a longstanding finding with this patient or not. Respiratory: other - The patient is tachypneic. She will not take a deep breath upon instruction. No obvious wheezing or rhonchi currently. She is currently on 4 L with a pulse oximeter reading around 90%. Again this is likely inaccurate given the coldness of her extremities. Cardiovascular/Chest: regular rate, rhythm, no edema Peripheral Pulses: radial,left: 2+, dorsalis pedis,right: 1+, dorsalis pedis,left: 1+ Gastrointestinal/Abdominal: soft, other - She appears to have some discomfort to palpation primarily of the left side of the abdomen. No definite palpable mass. No definite guarding or rebound. Rectal Exam: deferred Extremity: no pedal edema, no calf tenderness, other - The patient has a right upper extremity and a splint. IV is to the left arm which she seems to move okay. Extremities are cold. Neurologic: tablet coater II-XII nml as tested - Though difficult to assess., alert, other - The patient withdraws from pain. Skin Exam: cyanosis - Acral, pallor <Jeremie Zaragoza L - Last Filed: 12/30/19 06:55> Progress - Progress Progress: 12/30/19 06:28 The patient is a 74-year-old female patient with a history of significant dementia presented to emergency room secondary to decreased responsiveness from what is normal for her along with significant diaphoresis, borderline hypotension, acral cyanosis, and hyperglycemia. As the patient really not able to give us any good information directly and she is minimally cooperative given the dementia, the patient is going to receive a rather aggressive broad-spectrum work-up. She is going to receive a small dose of Ativan in case some of the presentation is withdrawal from benzodiazepines from not taking the medication. She is receiving a liter of IV fluids to hopefully help with the hypotension. Again source of the hypotension at this point is not entirely certain. The patient is mildly hypothermic and has a Abel hugger in place. She is receiving warm IV fluids. The patient will receive CT scans without contrast of the head, chest and abdomen and pelvis. EKG shows scattered mild ST segment depressions which may be related to hypothermia. Cardiac enzymes are pending. The patient has received 7 units of insulin lispro subcutaneously for the hyperglycemia. She will need frequent glucose checks. Additionally we are obtaining an ABG to get a better idea of her true oxygenation status as well as her pH to see if there is a significant acidotic component such as significant lactic acidosis or DKA. Again the patient does not appear to have any history listed on her paperwork of any diabetes. I am also going to empirically start the patient on a dose of Rocephin. A blood culture is being done. Urinalysis will be done. The patient comes from a group home. They have no known cases of coronavirus to this point. The patient will be picked up by the oncoming emergency room doctor and followed. The patient is obviously in general very poor health, and regardless of what the source is for causing her to present like this, mortality is likely significant. 12/30/19 06:55 Critical care time spent of 35 minutes by me on this patient so far. jeremie [email or web address] [phone] - Results/Orders Results/Orders: EKG shows normal sinus rhythm at 94 bpm. Right axis deviation. Prolonged QT interval. Early right bundle branch block. Normal R wave progression. Diffuse scattered mild ST depression. This was seen a little bit on previous EKGs but is much more pronounced today. <Jeremie Zaragoza L - Last Filed: 12/30/19 06:55> - Progress Progress: 12/30/19 07:50 I ASSUMED MEDICAL CARE FROM DR. JEREMIE ZARAGOZA AND 0700. I CONCUR WITH ABOVE. PHYSICAL EXAM UNCHANGED FROM ABOVE. PT IN CRITICAL CONDITION. CRITICAL CARE TIME 51 MIN SO FAR WITH ME BUT OVERALL THIS STAY 86 MIN (06:25 UNTIL PRESENT). LACTIC ACID 7, 1ST BOLUS FINISHED THUS GIVING 2ND BOLUS OF WARM IVF. ABG UNOBTAINABLE D/T DEHYDRATION. MULTIPLE ATTEMPTS HAVE BEEN MADE. RESP RATE 40 THUS CHANGING NC TO BIPAP. BP UNOBTAINABLE EVEN MANUALLY WITH DOPPLER, THUS STARTING LEVOPHED DRIP 5 MCG/KG/MIN TO SUPPORT BLOOD PRESSURE. I AM DOUBTFUL REGARDING HER LONG-TERM SURVIVAL DUE TO HER RESPIRATORY STATUS AND HYPOTENSION. I AM CONCERNED ABOUT MULTIPLE ORGAN FAILURE (LABS PENDING). HER 02 SATS ARE REMAINING AT 90%. SHE IS FULL CODE THUS SHE WILL NEED TO BE INTUBATED IF HER RESPIRATORY RATE DOES NOT IMPROVE WITH IV RESUSCITATION AND 02. 12/30/19 08:02 SATS 96% ON CPAP. I SPOKE WITH THE PATIENT'S SON, LUZ KRUSE, AT 0800. I UPDATED HIM WITH HIS MOTHER'S CRITICAL CONDITION AND RECOMMENDED HE COME TO THE ER TO VISIT. I INFORMED HIM WE WILL BE NEEDING TO TRANSFER HER TO ICU ONCE STABILIZED. 12/30/19 08:06 LABS PENDING. 12/30/19 08:17 RR 32 ON BIPAP, DOWN FROM 40 ON NC. SATS IMPROVING FROM 90% NC TO 96% BIPAP. IMPROVEMENT WITH BIPAP, THUS EVEN THOUGH SHE IS STILL TACHEPNEIC, INTUBATION IS NOT CLINICALLY INDICATED AT THIS TIME SINCE HER SATS AND RESPIRATORY RATE ARE STILL IMPROVING ON BIPAP. 12/30/19 08:32 RESPIRATORY RATE NOW 28 (BELOW 30), THUS INTUBATION IS NOT INDICATED AT THIS POINT (TACHYPNEIC BUT RATE LESS THAN 30, HENCE NO INTUBATION). D-DIMER ELEVATED AT 2,080, TACHYPNEIC, MILDLY HYPOXIC, THUS I SUSPECT P.E. I MUST ORDER A CHEST CT WITH CONTRAST TO DEFINITIVELY DIAGNOSE P.E., TX INCLUDES DANGEROUS ANTICOAGULANTS OR LYTICS SINCE PT IS STILL HEMODYNAMICALLY UNSTABLE (HYPOTENSIVE). STILL UNABLE TO OBTAIN BP WITH IVF AND IV PRESSOR, THUS I INCREASED THE LEVOPHED. BNP 1,510 - CHF EXACERBATION. REGARDLESS, PT IS CRITICALLY HYPOTENSIVE THUS SHE NEEDS IVF TO SUPPORT CRITICAL ORGAN FUNCTION. LFT'S VERY ELEVATED. CBC - WBC SLIGHTLY ELEVATED AT 14. CMP - CO2 12 (LACTIC ACIDOSIS). BUN 42 (ACUTE RENAL FAILUR FROM PRE-RENAL AZOTEMIA). CR WNL 1.15. GLUC 244 - BOLUSING. ADDITIONAL LABS: UA - PROTEINURIA, NO UTI. AMYLASE/LIPASE WNL. TSH AND MAGNESIUM WNL. COAGULATION PANEL SLIGHTLY ELEVATED. CARD ENZ - TROP JUST BARELY ELEVATED AT 0.06 (ABOVE 0.05 LIMIT). NOT INDICATIVE OF CA BUT SLIGHTLY ELEVATED FROM HEART STRAIN IF IT IS P.E. PER CT WITH CONTRAST. CKMB WNL. (EKG SCATTERED MILD ST DEPRESSIONS, NO ACUTE ST ELEVATION.) BCX PENDING. HEAD CT - NEG ACUTELY. NON CONTRAST CHEST CT - NO PNEUMONIA. ABD/PELVIS CT - CONSTIPATION/FECAL IMPACTION. CHRONIC. DOES NOT ACCOUNT FOR PATIENT'S SX TODAY. 12/30/19 08:47 TOTAL CRITICAL CARE TIME SO FAR FOR THIS STAY: 06:25 - PRESENT. PT STILL NO BP THUS GIVING 3RD LITER WARM IV BOLUS. PER ABOVE, PT IS HAVING MULTIPLE ORGAN DYSFUNCTION - LUNGS, HEART, LIVER, KIDNEYS, PANCREAS. SHE IS IN CRITICAL CONDITION. CURRENTLY THE ER IS THE ICU THE PT IS NOT YET STABLE FOR TRANSFER TO A HOSPITAL WITH AN ICU DUE TO HER SEVERE HYPOTENSION WITH IMMEASURABLE BP AND NEEDING TO OBTAIN CHEST CT W/ CONTRAST TO RULE OUT P.E. THE PATIENT'S CARDIORESPIRATORY STATUS IS CURRENTLY STABLE TO GO TO CT SINCE IT IS ESSENTIAL TO DIAGNOSE P.E. AND THUS GIVE FURTHER APPROPRIATE TREATMENT, CURRENTLY WITH WITH NO TACHYCARDIA (PULSE IN 80'S), MILD TACHYPNEA NOT INDICATING INTUBATION (RR 24), AND NO HYPOXIA (O2 SATS 96% ON BIPAP, 90% ON 4L NASAL CANNULA), NO FEVER. THE ONLY PRESENTLY UNSTABLE VITAL SIGN IS HYPOTENSION, WHICH IS BEING TREATED WITH IVF BOLUS AND LEVOPHED. THUS SHE IS SAFE TO GO TO CT. 12/30/19 10:26 THE NURSE AND I WENT WITH THE PATIENT TO RADIOLOGY FOR THE CT WITH CONTRAST. SHE REMAINED ON THE IVF AND LEVOPHED DRIP. HER OXYGENATION STATUS WAS STABLE RANGING FROM 90-96%, PER ABOVE. SHE REMAINED STABLE DURING AND AFTER C.T. SCAN. WE MOVED HER FROM CT TABLE TO ER BED. AFTER WE TRANSLOCATED HER AND STARTED TO TRANSPORT HER OUT OF RADIOLOGY, SHE STARTED BREATHING VERY SLOWLY, SO I BECAME CONCERNED WITH THE SUDDEN CHANGE. SHE STILL HAD A STRONG, NORMAL PULSE. WE BRISKLY BROUGHT HER BACK TO THE ER. ONCE BACK IN THE ER, SHE STILL HAD A HEARTBEAT AND NORMAL PULSE IN THE 80'S. AFTER APPROXIMATELY 3 MINUTES BACK IN THE ER, HER PULSE SUDDENLY STOPPED, THUS CHEST COMPRESSIONS WERE STARTED (ADMINISTERED BY ME) AT 9:15. AFTER APPROXIMATELY 1 MINUTE OF COMPRESSIONS, IT WAS NOTED ON THE DEFIBRILLATOR MONITOR THAT SHE HAD ROSC (RETURN OF SPONTANEOUS CONTRACTIONS) AND WAS BREATHING ON HER OWN. HER PULSE PER PALPATION AND HEARTBEAT PER AUSCULTATION RETURNED TO NORMAL, BACK IN THE 80'S. SHE CONTINUED BREATHING ON HER OWN, REGARDLESS WE PREPARED FOR INTUBATION. RESPIRATORY THERAPY SUPPORTED HER WITH BIPAP. AFTER ABOUT 1 MINUTE OF SPONTANEOUS CARDIAC CONTRACTIONS (HER HEART WAS BEATING ON ITS OWN), THE DEFIBRILLATOR MONITOR AGAIN SUDDENLY SHOWED ASYSTOLE AND SHE WAS NOTED TO BE PULSELESS, THUS I STARTED CHEST COMPRESSIONS AGAIN. SIMILARLY AFTER 2 MINUTES OF COMPRESSIONS, HER PULSE AND BREATHING RETURNED. THEN AFTER APPROXIMATELY 2 MINUTES OF THE PATIENT HAVING A NORMAL HEARTBEAT AND RESPIRATION AT ABOUT 9:25, SHE AGAIN SHOWED ASYSTOLE AND BECAME PULSELESS. COMPRESSIONS WERE AGAIN STARTED. THIS 3RD TIME HER SPONTANEOUS PULSE AND RESPIRATIONS DID NOT RETURN. WE TRANSITIONED FROM MANUAL COMPRESSIONS TO THE AUTOMATED CHEST COMPRESSION MACHINE. OXYGENATION WAS GIVEN WITH [id number] AND AT APPROXIMATELY 9:35 SHE WAS SUCCESSFULLY INTUBATED BY ME WITH GLIDESCOPE ( CONFIRMED BY BILATERAL LUNG SOUNDS AUSCULTATED, POS END TIDAL C02, AND EXHILATORY MIST IN THE VENTILATION TUBE). THE PATIENT'S JOWEL MUSCLES WERE QUITE CONTRACTED, THUS 50 SUCCINYL CHOLINE AND 20 ETOMIDATE WERE GIVEN DURING INTUBATION. NUMEROUS ROUNDS OF CPR/CODE WERE ADMINISTERED OVER 36 MINUTES (09:25 - 10:01) WITH ADEQUATE, RIGOROUS CHEST COMPRESSIONS AND INTUBATED [id number] VENTILATIONS, WITH PULSE CHECK EVERY 3 MINUTES. A TOTAL OF 6 AMPS OF EPINEPHERINE WERE ADMISTERED DURING THE CODE. THE RADIOLOGIST PERSONALLY CALLED ME AND INFORMED ME THE CT SHOWED THE LARGEST BILATERAL PULMONARY EMBOLISM HE HAD EVER SEEN. TNKASE WAS GIVEN. DESPITE HEROIC EFFORTS, WE WERE UNABLE TO RESUSCITATE THE PATIENT AND SHE AT 10:01 (MASSIVE PULMONARY EMBOLISM, RESULTING IN SEVERE HYPOTENSION AND INADEQUATE ORGAN PERFUSION, RESULTING IN ACUTE MULTIPLE ORGAN FAILURE). I TALKED WITH HER CHILDREN AND EXPRESSED MY DEEPEST CONDOLENCES. I INFORMED THEM I AM AVAILABLE TO TALK MORE, AT ANYTIME. <Andry Martin - Last Filed: 12/31/19 01:34> Departure <Jeremie Zaragoza - Last Filed: 12/30/19 06:55> <Andry Martin - Last Filed: 12/31/19 01:34> - Departure Clinical Impression: Acute massive pulmonary embolism, Severe hypotension, Multiple organ system failure, Lactic acidosis, Tachypnea, Hyperglycemia, Elevated LFTs, Elevated troponin, Elevated d-dimer, Elevated brain natriuretic peptide (BNP) level Altered mental status Qualifiers: Altered mental status type: somnolence Qualified Code(s): R40.0 - Somnolence CHF (congestive heart failure) Qualifiers: Heart failure type: unspecified Heart failure chronicity: acute Qualified Code(s): I50.9 - Heart failure, unspecified Hypothermia Qualifiers: Encounter type: initial encounter Qualified Code(s): T68.XXXA - Hypothermia, initial encounter Leukocytosis Qualifiers: Leukocytosis type: unspecified Qualified Code(s): D72.829 - Elevated white blood cell count, unspecified Proteinuria Qualifiers: Proteinuria type: unspecified Qualified Code(s): R80.9 - Proteinuria, unspecified Acute renal failure Qualifiers: Acute renal failure type: unspecified Qualified Code(s): N17.9 - Acute kidney failure, unspecified Disposition: Home Medications: Ambulatory Orders Atorvastatin Calcium [Lipitor] 20 mg PO BEDTIME 07/13/14 Calcitonin-Railroad Nasal [place] [Miacalcin Nasal [place]] 200 unit NA DAILY 07/13/14 Hydrochlorothiazide [Microzide] 12.5 mg PO DAILY 07/13/14 Levothyroxine Sodium [Tirosint] 100 mcg PO DAILY 07/13/14 Lisinopril 10 mg PO DAILY 07/13/14 Metoprolol Succinate [Metoprolol Succinate ER] 100 mg PO BEDTIME 07/13/14 Sertraline HCl 75 mg PO DAILY 07/13/14 Acetaminophen W/ Codeine [Tylenol W/ CODEINE #3] 1 ea PO Q4H PRN #12 04/09/16 Ibuprofen [Motrin Tab] 600 mg PO Q8H PRN #15 tab 04/09/16 Acetamin W/Cod #3 Tab [Tylenol w/CODEINE #3] 1 ea PO TID PRN #20 tab 12/08/18 Alprazolam [Xanax] 1 mg PO BEDTIME #10 tab 12/08/18 Nitrofurantoin Monohydrate Mac [Macrobid] 100 mg PO BID 7 Days #10 capsule 12/08/18 Cefdinir 250 mg PO BID #70 ml 08/05/19 Albuterol Sulfate Nebs [Proventil Nebs] 2.5 mg INH Q4H #18 vial 10/17/19 Levofloxacin [Levaquin] 750 mg PO DAILY #10 tablet 10/17/19 Critical Care Note - Critical Care Note Total Time (mins): 216 Comments: 06:25 AM - 10:01 AM <Andry Martin - Last Filed: 12/31/19 01:34>
[2019-12-30] MEDS ORDERED: cefTRIAXone SODIUM 1 GM in SODIUM CHL 0.9% 50ML MIN-BAG+ 50 ML IVPB ONE (06:33)
[2019-12-30] MEDS ORDERED: SODIUM CHL 0.9% 50ML MIN-BAG+ 50 ML IVPB ONE (06:35)
[2019-12-30] MEDS ORDERED: cefTRIAXone SODIUM 1 GM VIAL ONE (06:35)
[2019-12-30 06:39] VITALS: TEMP 96.5
--- NOTE | 2019-12-30 07:22 | CT ---
EXAM DESCRIPTION: Chest w/o Contrast CLINICAL HISTORY: 74 years, Female, ams, diaphoretic COMPARISON: None TECHNIQUE: Thin-section noncontrast axial CT images are obtained according to our protocol. Reconstructed MPR images are created and reviewed as well. This exam was performed according to our departmental dose-optimization program, which includes automated exposure control, adjustment of the mA and/or kV according to patient size and/or use of iterative reconstruction technique. FINDINGS: Marked thoracic deformity with levoscoliosis of the spine and marked kyphosis is present with previous plate and screw fixation of the left clavicle noted. There is marked elevation of the right hemidiaphragm with modest layering pleural effusion present. A distinct focal thoracic compression deformity is not apparent. No destructive chest wall mass is seen. Left lung is essentially clear. There is respiratory motion artifact at both lung bases but no left-sided pulmonary mass or consolidation or layering pleural effusion or left hilar adenopathy noted. Right lung demonstrates elevated hemidiaphragm and crowded compressed basilar lung markings with modest layering posterior pleural effusion. Dense lobar or multiple areas of segmental consolidation are not apparent. Basilar lung compression predominantly involves the right lower lobe. Noncontrast evaluation of the thoracic inlet and mediastinum demonstrates tortuous calcified aortic arch without superior or middle mediastinal adenopathy or mass. Heart size is normal without pericardial effusion. IMPRESSION: 1. Marked thoracic deformity with advanced levoscoliosis and marked kyphosis of the dorsal spine and markedly elevated right hemidiaphragm. No acute or severe compression deformity identified. 2. Clear left lung and crowded basilar markings and marked elevation of the right lung base with modest layering right-sided pleural effusion. 3. Previous plating and fixation of the left clavicle with no acute chest wall destructive process or fracture is noted. Electronically signed by: Brodie Dwyer MD 12/30/2019 7:20 AM CDT
--- NOTE | 2019-12-30 07:28 | CT ---
EXAM DESCRIPTION: Head CLINICAL HISTORY: ams, diaphoretic COMPARISON: August 05, 2019 TECHNIQUE: Non contrast cranial CT This exam was performed according to our departmental dose-optimization program, which includes automated exposure control, adjustment of the mA and/or kV according to patient size and/or use of iterative reconstruction technique. FINDINGS: Image quality is significantly diminished by malpositioning and rotation of the patient. Posteriorly in each cerebral hemisphere just cephalad to the trigone region of each lateral ventricle moderate white matter signal changes of aging and small vessel disease is present. This is more prominent on the left than the right but unchanged from July 2019 study consistent with chronic age-related and microvascular ischemic changes. Modest ventriculomegaly with prominence of the sylvian fissures and cortical sulci and to a lesser extent subarachnoid space is noted consistent with age-related atrophy. The third and fourth ventricles are midline. No subarachnoid or parenchymal or subdural or intraventricular hemorrhage or mass effect or midline shift noted. The bony calvarium is intact. Both petrous ridges are well pneumatized with no evidence of mastoid or upper paranasal sinuses acute inflammatory changes. No bony destructive changes noted. IMPRESSION: 1. Modest age-related atrophic changes and periventricular white matter signal changes left cerebral hemisphere greater than right just cephalad to the trigone region on each side. These findings are unchanged from remote prior study with no evidence of acute intracranial hemorrhage or mass. 2. No evidence of acute mastoid or sinus inflammatory disease or bony destructive process. Electronically signed by: Brodie Dwyer MD 12/30/2019 7:26 AM CDT
--- NOTE | 2019-12-30 07:38 | CT ---
EXAM DESCRIPTION: Abdomen/Pelvis w/o Contrast CLINICAL HISTORY: 74 years, 74 years, Female, Female, ams, diaphoretic COMPARISON: December 08, 2018 TECHNIQUE: CT of the abdomen and pelvis is performed according to our non contrast protocol This exam was performed according to our departmental dose-optimization program, which includes automated exposure control, adjustment of the mA and/or kV according to patient size and/or use of iterative reconstruction technique. FINDINGS: Marked elevation of the right hemidiaphragm with modest layering right pleural effusion is present. The unenhanced liver is grossly unremarkable. Gallbladder is not clearly identified but no evidence of intrahepatic or extrahepatic ductal dilation noted. A small normal spleen in the left upper quadrant noted. The unenhanced pancreas and region of the adrenal glands appears normal. The unenhanced kidneys demonstrate no evidence of hydronephrosis or intrarenal stone disease. No large or obvious renal cyst or mass or perinephric lesion identified. Aortic calcification without aneurysm is noted. Retroperitoneum is otherwise unremarkable. Large and small bowel caliber is normal without obstruction. There is marked distention of the rectum and distal sigmoid consistent with fecal impaction. Significant inflammatory changes to suggest stercoral colitis is not apparent. Proximal obstruction is not apparent with modest changes of left-sided diverticulosis noted. No significant hiatal hernia evident. The anterior abdominal wall and inguinal regions are unremarkable. A ventral or inguinal hernia is not apparent. Within the pelvis the bladder is incompletely distended and appears thick-walled. A small anteverted uterus anterior to the stool-filled and distended rectosigmoid junction is noted without adnexal mass. Tiny amount of free fluid in the left adnexal region is noted without dominant cystic or solid mass or significant abdominal or pelvic ascites noted elsewhere. No free abdominal air or marked ascites noted and no evidence of abdominal or pelvic perforation seen. Generalized osteopenia of the bony structures with mild dextroscoliosis of the lumbar spine extending cephalad to significant levoscoliosis of the lower thoracic spine. No vertebral collapse noted. IMPRESSION: 1. Marked elevation of the right hemidiaphragm and liver with no gross abnormality. Nonidentification of the gallbladder suggesting prior cholecystectomy with no evidence of ductal dilation. 2. Marked stool distention of the distal sigmoid colon and rectum consistent with fecal impaction. 3. Osteopenia and degenerative changes and scoliosis of the thoracolumbar spine. 4. Mild left colonic diverticulosis and minimal free fluid in the left adnexal region, nonspecific. Electronically signed by: Brodie Dwyer MD 12/30/2019 7:36 AM CDT
[2019-12-30] MEDS ORDERED: NOREPINEPHRINE BITARTRATE 4 MG in DEXTROSE 5% 250ML 250 ML IVPB SCH (07:51)
[2019-12-30] MEDS ORDERED: NOREPINEPHRINE BITARTRATE 4 MG/4 ML VIAL IVPB ONE (08:02)
[2019-12-30] MEDS ORDERED: DEXTROSE 5% 250ML 250 ML ONE (08:03)
[2019-12-30 08:08] VITALS: BP 50/0
[2019-12-30 08:36] VITALS: O2SAT 99
[2019-12-30] MEDS ORDERED: ETOMIDATE INJECTION 2 MG/ML 20ML VIAL IV ONE (09:15)
[2019-12-30] MEDS ORDERED: SUCCINYLCHOLINE CHLORIDE 200 MG/10 ML VIAL ONE (09:28)
[2019-12-30] MEDS ORDERED: EPINEPHrine INJ 0.1 MG/ML 10 ML SYG ONE (09:40)
[2019-12-30] MEDS ORDERED: TENECTEPLASE 50 MG VIAL ONE (09:49)
--- NOTE | 2019-12-30 09:58 | CT ---
EXAM DESCRIPTION: CTA Chest CLINICAL HISTORY: 74 years, Female, D-DIM[employer], [place]. CONCERN FOR P.E. COMPARISON: None TECHNIQUE: Rapid bolus administration of nonionicIV contrast was performed with thin-section axial scanning of the chest performed in a dynamic fashion. Reconstructed multiplanar and three dimensional MIP and/or VRT images were created on a separate dedicated workstation were reviewed along with the source axial images and stored in the patient's medical record. Stenoses were evaluated using the NASCET criteria. This exam was performed according to our departmental dose-optimization program, which includes automated exposure control, adjustment of the mA and/or kV according to patient size and/or use of iterative reconstruction technique. Critical value finding of massive pulmonary embolus called to the emergency room doctor at the time of initial evaluation prior to final dictation of this report. FINDINGS: CT pulmonary angiogram demonstrates marked chest wall deformity and thoracic deformity with dense opaque contrast distending the right atrium and right ventricle with reflux into the anterior aspect of the liver with heterogeneous filling of the pulmonary outflow tract and evidence of distal extensive right main pulmonary artery and lobar artery pulmonary embolus and a near complete occlusion of the mid and distal portions of the left main pulmonary artery with very poor visualization of the peripheral lobar and segmental branches bilaterally. Massive bilateral pulmonary embolus is evident. Flattening and compression of the ventricular septum and displacement towards the left ventricle consistent with right heart strain and elevated right ventricular pressures is evident. Moderately elevated right hemidiaphragm and liver and reflux into the anterior aspect of the liver from right heart elevated pressures and distention of the right atrium and right ventricle noted. IMPRESSION: 1. Massive bilateral pulmonary embolus with near complete obstruction of the left main pulmonary artery as well as lobar and segmental branches and near complete obstruction of the distal right main pulmonary artery as well as lobar and segmental branches. Very little circulation to each lung is confirmed. 2. Right atrial and right ventricular dilatation with compression and displacement of the ventral tracheal or septum suggesting right heart strain and elevated right heart pressures. 3. Previously noted a markedly elevated right hemidiaphragm and compressive atelectasis at the right lung base with modest right-sided pleural effusion. 4. Results telephoned to the emergency room physician at [facility] prior to this final dictation. Electronically signed by: Brodie Dwyer MD 12/30/2019 9:56 AM CDT
== END 2019-12-30 10:01 | disposition expired ==
LOC: ER 06:03
DX: I26.99 Other pulmonary embolism without acute cor pulmonale (principal); R40.0 Somnolence; R79.89 Other specified abnormal findings of blood chemistry; R94.5 Abnormal results of liver function studies; T68.XXXA Hypothermia, initial encounter; D72.829 Elevated white blood cell count, unspecified; R80.9 Proteinuria, unspecified; N17.9 Acute kidney failure, unspecified; I10 Essential (primary) hypertension; I45.10 Unspecified right bundle-branch block; I50.9 Heart failure, unspecified; R73.9 Hyperglycemia, unspecified; F03.90 Unspecified dementia, unspecified severity, without behavioral disturbance, psychotic disturbance, mood disturbance, and anxiety; K59.00 Constipation, unspecified; I95.9 Hypotension, unspecified
CPT/HCPCS: 31500; 36415; 36416; 70450; 71250; 71275; 74176; 80053; 81001; 82150; 82550; 82553; 82948; 83605; 83690; 83735; 83880; 84443; 84484; 85025; 85379; 85610; 85730; 87040; 93005; 94660; J0330; J0696; J1815; J2060; J3101; J7030; J7050; J7060